=== PATIENT | male | born 1955 | race African-American/Black ===

== ENCOUNTER 2018-08-10 09:31 | Day surgery (SDC) | payer OTHER, BC ==
[~2018-08-10 09:31] MED LIST: KETOROLAC TROMETHAMINE 0.45% 4 DROP/0.4 ML DROPERETTE OD PRN
[2018-08-10] MEDS ORDERED: LIDOCAINE 1%/PHENYLEPHRINE 1.5% 1 ML VIAL ONE (09:43)
[2018-08-10] MEDS ORDERED: CHONDR SU A NA/HYALUR INTRAOC KIT (SURGICARE) ONE (09:43)
[2018-08-10] MEDS ORDERED: EPINEPHRINE INJ/PF 1 MG/1 ML AMPULE ONE (09:43)
[2018-08-10] MEDS: TETRACAINE HCL 0.5% OPH SOLN 4 ML OD PRN ×3 (10:39→12:18)
[2018-08-10] MEDS: CYCLOPENTOLATE 0.2%/PHENYLEPHRINE 1% OPH SOLN 2 ML OD PRN ×3 (10:39→10:56)
[2018-08-10] MEDS: BESIFLOXACIN HCL 0.6% OPH SUSP 5 ML BOTTLE OD PRN ×2 (10:39→10:45)
[2018-08-10] MEDS: TROPICAMIDE 1% OPH SOLN 3 ML OD PRN ×3 (10:39→10:56)
[2018-08-10] MEDS ORDERED: MIDAZOLAM 2 MG/2 ML INJ ONE (12:02)
[2018-08-10] MEDS ORDERED: FENTANYL CITRATE INJ/PF 100 MCG/2 ML AMPUL ONE (12:03)
[2018-08-10] MEDS ORDERED: LIDOCAINE 1%/PHENYLEPHRINE 1.5% 1 ML VIAL IO ONE ×2 (12:12)
[2018-08-10] MEDS ORDERED: BESIFLOXACIN HCL 0.6% OPH SUSP 5 ML BOTTLE OP ONE (12:18)
[2018-08-10] MEDS ORDERED: CHONDR SU A NA/HYALUR SOD INTRAOCULAR SYSTEM 1 KIT IO ONE (12:18)
--- NOTE | 2018-08-10 15:26 | [facility] OPERATIVE REPORT E ---
[facility] Operative Report NAME: ZOYA LUIS AGE: 63Y DATE OF SURGERY: 08/10/2018 ROOM: PREOPERATIVE DIAGNOSIS: CATARACT, RIGHT EYE. POSTOPERATIVE DIAGNOSIS: CATARACT, RIGHT EYE. OPERATION: Cataract extraction with insertion of an IOL of the right eye. SURGEON: SHARMAINE GOLDSTEIN M.D. ANESTHESIA: Topical. PROCEDURE: After obtaining appropriate consent, the patient's right eye was prepped and draped in sterile fashion as well as the surgeon in a sterile manner and cataract surgery was started. First a paracentesis blade was used to make a side-port incision. Viscoelastic was used to inflate the anterior chamber. Next a 2.4 mm incision was made with a 2.4 mm blade, clear corneal temporally. A continuous capsulorrhexis was made using a cystotome and Utrata forceps. Following this hydrodissection was carried out to make the lens fully loose and mobile and it was rotated 90 degrees. Following this, a jxwkav-xds-lapmmsw technique was used to phacoemulsify the lens with a CDE of 3.87. The remaining cortex was removed with irrigation/aspiration. Provisc was instilled into the capsular bag to inflate the bag. A SN60WF, 22.5 diopter lens was placed. The remaining viscoelastic material was removed with irrigation/aspiration. Following this, the incision was found to be watertight. Besivance was instilled into the eye and a protective shield was placed over the eye. The patient returned to the postoperative recovery in stable condition. DICTATING PHYSICIAN: SHARMAINE GOLDSTEIN M.D. [id number] PHY#: [id number] ID: [id number] JOB#: [id number] ACCT: [id number] cc:SHARMAINE GOLDSTEIN M.D. >
--- NOTE | 2018-08-10 15:27 | DISCHARGE SUMMARY E ---
Discharge Summary NAME: ZOYA LUIS : 1955 AGE: 63Y ADMITTED: 08/10/2018 DISCHARGED: 08/10/2018 HOSPITAL COURSE: This is a 63-year-old male who underwent cataract extraction of the right eye. DIAGNOSIS: Cataract, right eye. He underwent surgery because he was having difficulty seeing road signs and words on the television. DISCHARGE INSTRUCTIONS: He is to be on a regular diet. No bending at his waist, no heavy lifting. He is to use his Besivance, Ilevro, and Durezol at 3:00 p.m. and 8:00 p.m., and sleep with a rigid shield. I will see him for his 1 day postoperative tomorrow. DICTATING PHYSICIAN: SHARMAINE GOLDSTEIN M.D. [id number] PHY#: [id number] ID: [id number] JOB#: [id number] ACCT: [id number] cc:SHARMAINE GOLDSTEIN M.D. >
== END 2018-08-10 13:15 | disposition home or self-care (01) ==
LOC: SC 09:31
PROVIDERS: ATTEND Internal Medicine
DX: H25.11 Age-related nuclear cataract, right eye (principal); M19.90 Unspecified osteoarthritis, unspecified site; I10 Essential (primary) hypertension; J45.909 Unspecified asthma, uncomplicated; Z79.51 Long term (current) use of inhaled steroids; Z79.899 Other long term (current) drug therapy
CPT/HCPCS: 66984; V2632; J2250; J3490 ×2; J0171; J3010; J2370; 142

== ENCOUNTER 2018-08-29 08:16 | Day surgery (SDC) | payer OTHER, BC ==
[~2018-08-29 08:16] MED LIST changes: +CHONDR SU A NA/HYALUR INTRAOC KIT (SURGICARE) ONE; +EPINEPHRINE INJ/PF 1 MG/1 ML AMPULE ONE; -KETOROLAC TROMETHAMINE 0.45% 4 DROP/0.4 ML DROPERETTE OD PRN; +KETOROLAC TROMETHAMINE 0.45% 4 DROP/0.4 ML DROPERETTE OS PRN; +LIDOCAINE 1%/PHENYLEPHRINE 1.5% 1 ML VIAL ONE
[2018-08-29] MEDS: BESIFLOXACIN HCL 0.6% OPH SUSP 5 ML BOTTLE OS PRN ×4 (08:23→09:17)
[2018-08-29] MEDS: TROPICAMIDE 1% OPH SOLN 3 ML OS PRN ×3 (08:23→08:43)
[2018-08-29] MEDS: CYCLOPENTOLATE 0.2%/PHENYLEPHRINE 1% OPH SOLN 2 ML OS PRN ×3 (08:23→08:43)
[2018-08-29] MEDS: TETRACAINE HCL 0.5% OPH SOLN 4 ML OS PRN ×3 (08:24→08:57)
[2018-08-29] MEDS ORDERED: MIDAZOLAM 2 MG/2 ML INJ ONE (08:41)
[2018-08-29] MEDS ORDERED: FENTANYL CITRATE INJ/PF 100 MCG/2 ML AMPUL ONE (08:42)
--- NOTE | 2018-08-29 14:21 | [facility] OPERATIVE REPORT E ---
[facility] Operative Report NAME: ZOYA LUIS AGE: 63Y DATE OF SURGERY: 08/29/2018 ROOM: PREOPERATIVE DIAGNOSIS: CATARACT, LEFT EYE. POSTOPERATIVE DIAGNOSIS: CATARACT, LEFT EYE. OPERATION: Cataract extraction with insertion of an IOL of the left eye. SURGEON: SHARMAINE GOLDSTEIN M.D. ANESTHESIA: Topical. PROCEDURE: After obtaining appropriate consent, the patient's left eye was prepped and draped in sterile fashion as well as the surgeon in a sterile manner and cataract surgery was started. First a paracentesis blade was used to make a side-port incision. Viscoelastic was used to inflate the anterior chamber. Next a 2.4 mm incision was made with a 2.4 mm blade, clear corneal temporally. A continuous capsulorrhexis was made using a cystotome and Utrata forceps. Following this hydrodissection was carried out to make the lens fully loose and mobile and it was rotated 90 degrees. Following this, a ykvtdi-bum-pmhgsdv technique was used to phacoemulsify the lens with a CDE of 6.03. The remaining cortex was removed with irrigation/aspiration. Provisc was instilled into the capsular bag to inflate the bag. A SN60WF, 23.0 diopter lens was placed. The remaining viscoelastic material was removed with irrigation/aspiration. Following this, the incision was found to be watertight. Besivance was instilled into the eye and a protective shield was placed over the eye. The patient returned to the postoperative recovery in stable condition. DICTATING PHYSICIAN: SHARMAINE GOLDSTEIN M.D. [id number] PHY#: [id number] ID: [id number] JOB#: [id number] ACCT: [id number] cc:SHARMAINE GOLDSTEIN M.D. >
--- NOTE | 2018-08-29 14:21 | [facility] DISCHARGE SUMMARY E ---
[facility] Discharge Summary NAME: ZOYA LUIS AGE: 63Y ADMITTED: 08/29/2018 DISCHARGED: 08/29/2018 FINAL DIAGNOSIS: CATARACT, LEFT EYE. HISTORY/CLINIC COURSE: This is a 63-year-old patient who underwent cataract extraction left eye. He underwent surgery because of having difficulty seeing the television. He should be on a regular diet. No bending at the waist, no heavy lifting. He should use the Vigamox, Ketorolac, and PredForte at 3 p.m. and 8 p.m., and sleep with a rigid shield. I will see him for 1 day postoperative tomorrow. DICTATING PHYSICIAN: SHARMAINE GOLDSTEIN M.D. [id number] PHY#: [id number] ID: [id number] JOB#: [id number] ACCT: [id number] cc:SHARMAINE GOLDSTEIN M.D. >
== END 2018-08-29 10:02 | disposition home or self-care (01) ==
LOC: SC 08:16
PROVIDERS: ATTEND Internal Medicine
DX: H25.812 Combined forms of age-related cataract, left eye (principal); H57.03 Miosis; Z96.1 Presence of intraocular lens; J45.909 Unspecified asthma, uncomplicated; M19.90 Unspecified osteoarthritis, unspecified site; I10 Essential (primary) hypertension; G47.30 Sleep apnea, unspecified; Z79.899 Other long term (current) drug therapy; Z79.51 Long term (current) use of inhaled steroids
CPT/HCPCS: 66984; V2632; J2250; J3490 ×2; J0171; J3010; J2370; 142

== ENCOUNTER 2020-09-29 04:18 | Emergency (ER) | payer OTHER, MEDICARE, BC ==
[2020-09-29 04:28] VITALS: BP 147/87
--- NOTE | 2020-09-29 07:06 | ER Document Report ---
ED General - General Chief Complaint: Shortness Of Breath Stated Complaint: ANXIETY, SOB, LOSS OF SMELL Time Seen by Provider: 09/29/20 06:02 Primary Care Provider: SUE AMADOR MD [Primary Care Provider] - Follow up as needed TRAVEL OUTSIDE OF THE [place] IN LAST 30 DAYS: No - HPI Notes: Patient is a 65-year-old male presents emergency department for evaluation of a few days of sore throat, minimal cough, loss of sense of smell and taste. He states his had similar symptoms, with the exception of loss of sense of taste and smell, was tested recently for Covid and found to be negative. He denies any fevers or chills. He has had some nausea but no vomiting. Normal bowel movements. He denies any shortness of breath. He has some pain in his hips, but [facility], states that has been ongoing for the last several weeks. - Related Data Allergies/Adverse Reactions: No Known Allergies Allergy (Verified 08/29/18 08:30) Home Medications: Meloxicam 7.5 mg. Lisinopril 40 mg. Amlodipine 10 mg. Colace 240 mg. Aspirin 81 mg. Combivent Respimat Past Medical History - General Information source: Patient - Social History Smoking Status: Former Smoker Family History: Reviewed & Not Pertinent - Past Medical History Cardiac Medical History: Reports: Hx Hypertension Denies: Hx Heart Attack Pulmonary Medical History: Reports: Hx Asthma - MEDICATED Neurological Medical History: Denies: Hx Cerebrovascular Accident, Hx Seizures GI Medical History: Denies: Hx Hepatitis, Hx Hiatal Hernia, Hx Ulcer Psychiatric Medical History: Reports: Hx Post Traumatic Stress Disorder Infectious Medical History: Denies: Hx Hepatitis Past Surgical History: Denies: Hx Open Heart Surgery, Hx Pacemaker Review of Systems - Review of Systems Constitutional: No symptoms reported EENT: See HPI Cardiovascular: No symptoms reported Respiratory: See HPI Gastrointestinal: No symptoms reported Genitourinary: No symptoms reported Musculoskeletal: No symptoms reported Skin: No symptoms reported Neurological/Psychological: No symptoms reported -: Yes All other systems reviewed and negative Physical Exam - Vital signs Vitals: Temp Pulse Resp BP Pulse Ox 97.8 F 71 20 147/87 H 97 09/29/20 04:27 09/29/20 04:27 09/29/20 04:27 09/29/20 04:27 09/29/20 04:27 - Notes Notes: Vital signs reviewed, please refer to chart. Head is normocephalic, atraumatic. Pupils equal round, reactive to light. Oral mucosa is moist. Pharynx is mildly erythematous without exudate. Neck is supple without meningismus. Heart is regular rate and rhythm. Lungs are clear to auscultation bilaterally. Abdomen is soft, nontender, normoactive bowel sounds throughout. Extremities without cyanosis, clubbing. Posterior calves are nontender. Peripheral pulses are equal. Skin is warm and dry. Patient is awake, alert, neurological exam is nonfocal. Course - Re-evaluation Re-evalutation: 09/29/20 07:11 Patient presents to the emergency department for evaluation. He was initially seen, had unremarkable vital signs. At this point I do believe he should be a PUI for COVID-19. His vitals do not indicate any need for any x-ray at this time. His symptoms are not consistent with influenza. COVID-19 testing performed. He was given information regarding isolation he voiced und erstanding. [facility] is [facility], return to the ED with worsening or new concerning symptoms of any sort. - Vital Signs Vital signs: Temp Pulse Resp BP Pulse Ox 97.8 F 71 20 147/87 H 97 09/29/20 04:27 09/29/20 04:27 09/29/20 04:27 09/29/20 04:27 09/29/20 04:27 Discharge - Discharge Clinical Impression: Person under investigation for COVID-19 Condition: Stable Disposition: HOME, SELF-CARE Instructions: COVID-19 Guidance for Persons Under Investigation Additional Instructions: Rest, stay well-hydrated. Take your regular medications as prescribed. Vitamin C, zinc supplementation as discussed. [facility]. Return to the ED with worsening or new concerning symptoms of any sort. Referrals: SUE AMADOR MD [Primary Care Provider] - Follow up as needed
== END 2020-09-29 07:13 | disposition home or self-care (01) ==
LOC: ER 04:18
DX: U07.1 COVID-19 (principal); R06.02 Shortness of breath; R05 Cough; R43.8 Other disturbances of smell and taste; Z79.899 Other long term (current) drug therapy; Z87.891 Personal history of nicotine dependence; J45.909 Unspecified asthma, uncomplicated
CPT/HCPCS: 99283; 87635; C9803